=== PATIENT | male | born 1975 | race Caucasian/White ===

== ENCOUNTER 2018-08-23 11:16 | Emergency (ER) | payer MEDICAID ==
[~2018-08-23] VITALS: Ht 188 cm; Wt 90.9 kg
[2018-08-23] MEDS ORDERED: IBUPROFEN 800 MG TABLET PO ONE (12:15)
[2018-08-23 12:25] VITALS: BP 123/76
== END 2018-08-23 12:37 | disposition home or self-care (01) ==
LOC: EMS 11:19
DX: J02.9 Acute pharyngitis, unspecified (principal); R42 Dizziness and giddiness; F17.210 Nicotine dependence, cigarettes, uncomplicated